=== PATIENT | female | born 1980 | race Caucasian/White ===

== ENCOUNTER 2017-06-27 18:49 | Emergency (ER) | payer MEDICAID ==
[~2017-06-27 18:49] MED LIST: AMIT25TA20 PO; BACT800T5 PO; CELE10TA9 PO; DIAZ10 PO; MSIR15 PO; ROXI5SOL2 PO; TRAZ100 PO
[2017-06-27 19:11] VITALS: BP 127/68; PULSE 87; RESP 14; TEMP 98.4; O2SAT 98
--- NOTE | 2017-06-27 20:12 | RADRPT ---
EXAM DATE/TIME: 06/27/2017 19:33 [place] COMPARISON: No previous studies available for comparison. INDICATIONS : Chest pain for several days. MEDICAL HISTORY : Lupus. Bronchiole cyst. Pulmonary nodules. SURGICAL HISTORY : None. ENCOUNTER: Initial ACUITY: 2 days PAIN SCORE: 9/10 LOCATION: Bilateral chest FINDINGS: PA and lateral views of the chest demonstrate the lungs to be symmetrically aerated without evidence of mass, infiltrate or effusion. The cardiomediastinal contours are unremarkable. Osseous structure s are intact. CONCLUSION: No acute cardiopulmonary disease. Yuriy Bassett MD on June 27, 2017 at 20:10 Board Certified Radiologist. This report was verified electronically.
[2017-06-27 21:38] LABS: AUTOMATED NEUTROPHIL # 9.1 TH/MM3 (1.8-7.7); BASOPHIL # 0.1 TH/MM3 (0-0.2); BASOPHIL % 0.5 % (0.0-2.0); EOSINOPHIL # 0.2 TH/MM3 (0-0.4); EOSINOPHIL % 1.3 % (0.0-4.0); HEMATOCRIT 41.9 % (35.0-46.0); HEMOGLOBIN 14.4 GM/DL (11.6-15.3); LYMPH % 20.6 % (9.0-44.0); LYMPHOCYTE # 2.6 TH/MM3 (1.0-4.8); MEAN CORPUSCULAR HEMOGLOBIN 31.7 PG (27.0-34.0); MEAN CORPUSCULAR HGB CONC 34.5 % (32.0-36.0); MEAN PLATELET VOLUME 8.6 FL (7.0-11.0); MONO % 5.2 % (0.0-8.0); MONOCYTE # 0.7 TH/MM3 (0-0.9); NEUT % 72.4 % (16.0-70.0); PLATELET COUNT 265 TH/MM3 (150-450); RED BLOOD COUNT 4.55 MIL/MM3 (4.00-5.30); RED CELL DISTRIBUTION WIDTH 12.9 % (11.6-17.2); WHITE BLOOD COUNT 12.6 TH/MM3 (4.0-11.0)
[2017-06-27 21:48] LABS: INTERNATIONAL NORMALIZED RATIO 1.1 RATIO; PROTHROMBIN TIME - PATIENT 10.7 SEC (9.8-11.6)
[2017-06-27 21:57] LABS: ALBUMIN 3.8 GM/DL (3.4-5.0); AST (GOT) 15 U/L (15-37); BICARBONATE 26.9 MEQ/L (21.0-32.0); BLOOD UREA NITROGEN 13 MG/DL (7-18); CHLORIDE 102 MEQ/L (98-107); CREATININE 0.83 MG/DL (0.50-1.00); GLOMERULAR FILTRATION RATE 77 ML/MIN (>89); GLUCOSE,RANDOM 109 MG/DL (74-106); SODIUM (NA) 136 MEQ/L (136-145)
[2017-06-27 21:58] LABS: ALT (GPT) 17 U/L (10-53)
[2017-06-27 22:01] LABS: ALKALINE PHOSPHATASE 103 U/L (45-117); TOTAL BILIRUBIN ADULT 0.2 MG/DL (0.2-1.0); TOTAL PROTEIN 7.5 GM/DL (6.4-8.2); TROPONIN I LESS THAN 0.02 NG/ML (0.02-0.05)
--- NOTE | 2017-06-28 12:13 | PD ---
HPI Chief Complaint: Chest Pain Time Seen by Provider: 19:11 Travel History International Travel<30 days: No Contact w/Intl Traveler<30days: No Traveled to known affect area: No History of Present Illness HPI 37-year-old female presents to emergency department for evaluation of substernal chest pain 2 days. Radiates to her left upper extremity. She has felt dizzy and tired. Denies any recent illnesses, fever, or chills. Denies any nausea vomiting. PFSH Past Medical History Autoimmune Disease: Yes (poss lupus?) Anxiety: Yes Depression: Yes Diminished Hearing: No Hypertension: No Kidney Stones: Yes Musculoskeletal: Yes (thoracic outlet syndrome) Reproductive: Yes (BREAST IMPLANTS) Respiratory: Yes (BRONCHIAL CYST, PULMONARY NODULES) Thyroid Disease: Yes (THYROID SX ) Menopausal: Yes Dilation and Curettage (D&C): Yes Tubal Ligation: Yes Past Surgical History Section: Yes (x4) Endocrine Surgery: Yes (bronchial cyst from around thyriod removed) Gynecologic Surgery: Yes (LEEP PROCEDURE ', HYSTERECTOMY) Hysterectomy: Yes Thoracic Surgery: Yes (lung biopsy, BLOOD CLOT REMOVED FROM LEFT BREAST) Other Surgery: Yes (breast implants bilat) Social History Alcohol Use: Yes (RARELY) Tobacco Use: Yes (1.5 PPD) Substance Use: Yes (PRESCRIPTION DRUGS) Allergies-Medications (Allergen,Severity, Reaction): Coded Allergies: acetaminophen (Unverified Allergy, Severe, EDEMA/ RASH, 12/07/16) codeine (Unverified Allergy, Severe, 12/07/16) CANT HAVE CODEINE BY ITSELF BUT IN COMBINATION WITH OTHER MEDS morphine (Unverified Allergy, Severe, swelling/itching, 12/07/16) naproxen (Unverified Allergy, Severe, RASH, 12/07/16) propoxyphene (Unverified Allergy, Severe, EDEMA/ RASH, 12/07/16) Reported Meds & Prescriptions Reported Meds & Active Scripts Active Bactrim DS (Sulfamethoxazole-Trimethoprim DS) 1 Tab Tab 1 Tab PO BID Reported Morphine Sulfate IR 15 mg (Morphine Sulfate) 15 Mg Tab 15 Mg PO BID Valium (Diazepam) 10 Mg Tab 15 Mg PO HS Elavil (Amitriptyline HCl) 25 Mg Tab 25 Mg PO Trazodone Hcl (Trazodone HCl) 100 Mg Tab 100 Mg PO HS Celexa (Citalopram Hydrobromide) 10 Mg Tab 10 Mg PO DAILY UNKNOWN DOSE Roxicodone (Oxycodone HCl) 5 Mg/5 Ml [place] 30 Mg PO Q4-6HPRN Review of Systems Except as stated in HPI: all other systems reviewed are Neg Physical Exam Narrative Well-nourished female patient, ambulatory and in no acute distress. She appears nontoxic. Even respirations. Regular heart rate. Abdomen is nondistended. Patient moves all extremities. She speaks clearly to me. Data Data Last Documented VS Vital Signs Date Time Temp Pulse Resp B/P (MAP) Pulse Ox O2 Delivery O2 Flow Rate FiO2 06/27/17 19:11 98.4 87 14 127/68 (87) 98 Orders Orders Electrocardiogram (06/27/17 19:13) Ckmb (Isoenzyme) Profile (06/27/17 19:13) Complete Blood Count With Diff (06/27/17 19:13) Comprehensive Metabolic Panel (06/27/17 19:13) Prothrombin Time / Inr (Pt) (06/27/17 19:13) Act Partial Throm Time (Ptt) (06/27/17 19:13) Troponin I (06/27/17 19:13) Lipase (06/27/17 19:13) Chest, Pa & Lat (06/27/17 19:13) Labs Laboratory Tests Test 06/27/17 20:19 White Blood Count 12.6 TH/MM3 Red Blood Count 4.55 MIL/MM3 Hemoglobin 14.4 GM/DL Hematocrit 41.9 % Mean Corpuscular Volume 92.0 FL Mean Corpuscular Hemoglobin 31.7 PG Mean Corpuscular Hemoglobin Concent 34.5 % Red Cell Distribution Width 12.9 % Platelet Count 265 TH/MM3 Mean Platelet Volume 8.6 FL Neutrophils (%) (Auto) 72.4 % Lymphocytes (%) (Auto) 20.6 % Monocytes (%) (Auto) 5.2 % Eosinophils (%) (Auto) 1.3 % Basophils (%) (Auto) 0.5 % Neutrophils # (Auto) 9.1 TH/MM3 Lymphocytes # (Auto) 2.6 TH/MM3 Monocytes # (Auto) 0.7 TH/MM3 Eosinophils # (Auto) 0.2 TH/MM3 Basophils # (Auto) 0.1 TH/MM3 CBC Comment DIFF FINAL Differential Comment Prothrombin Time 10.7 SEC Prothromb Time International Ratio 1.1 RATIO Activated Partial Thromboplast Time 29.4 SEC Blood Urea Nitrogen 13 MG/DL Creatinine 0.83 MG/DL Random Glucose 109 MG/DL Total Protein 7.5 GM/DL Albumin 3.8 GM/DL Calcium Level 9.0 MG/DL Alkaline Phosphatase 103 U/L Aspartate Amino Transf (AST/SGOT) 15 U/L Alanine Aminotransferase (ALT/SGPT) 17 U/L Total Bilirubin 0.2 MG/DL Sodium Level 136 MEQ/L Potassium Level 3.8 MEQ/L Chloride Level 102 MEQ/L Carbon Dioxide Level 26.9 MEQ/L Anion Gap 7 MEQ/L Estimat Glomerular Filtration Rate 77 ML/MIN Total Creatine Kinase 87 U/L Troponin I LESS THAN 0.02 NG/ML Lipase 106 U/L [facility] Medical Decision Making Medical Screen Exam Complete: Yes Emergency Medical Condition: Yes Medical Record Reviewed: Yes Differential Diagnosis Electrolyte abnormality versus ACS versus chest wall pain versus pleuritic pain Narrative Course 37-year-old female presents to emergency department for evaluation of chest pain. Workup is initiated in triage. Prior to that placement, patient chooses to leave.AMA: The risks of leaving against medical advice without further evaluation treatment were discussed with the patient. These risks include cardiac dysfunction, cardiac dysrhythmia, possible heart attack, possible stroke or . The patient indicated understanding of these risks and appeared to have the capacity to make this decision. Diagnosis Primary Impression: Chest pain Patient Instructions: General Instructions Departure Forms: Tests/Procedures Disposition: 07 AGAINST MEDICAL ADVICE Condition: Stable Padma De La VegaP Jun 28, 2017 12:13
--- NOTE | 2017-06-29 07:39 | EKG ---
Date Performed: 06/27/2017 Time Performed: 20:14:41 PTAGE: 37 years EKG: Sinus rhythm R-WAVE PROGRESSION IMPROVED FROM THE PRIOR TRACING, PROBABLY DUE TO LEAD PLACEMENT PREVIOUS TRACING : 04/05/2010 23.51 DOCTOR: Bulmaro Man Interpretating Date/Time 06/29/2017 07:38:14
== END 2017-06-28 01:15 | disposition left against medical advice (07) ==
LOC: NED 18:49
DX: R07.9 Chest pain, unspecified (principal); Z53.21 Procedure and treatment not carried out due to patient leaving prior to being seen by health care provider; R42 Dizziness and giddiness; F19.90 Other psychoactive substance use, unspecified, uncomplicated; Z72.0 Tobacco use
CPT/HCPCS: 71046; 80053; 82550; 83690; 84484; 85025; 85610; 85730; 93005

== ENCOUNTER 2017-08-30 19:06 | Emergency (ER) | payer MEDICAID | END 2017-08-30 21:05 | disposition home or self-care (01) | LOC: NEPK 19:06 | DX: N61.0 Mastitis without abscess (principal); F17.200 Nicotine dependence, unspecified, uncomplicated | CPT/HCPCS: 99283 ==